=== PATIENT | female | born 1955 | race Caucasian/White ===

== ENCOUNTER 2016-07-06 23:27 | Emergency (ER) | payer BC ==
[~2016-07-06] VITALS: Ht 157.5 cm; Wt 67.7 kg
[2016-07-07] MEDS ORDERED: SODIUM CHLORIDE FLUSH 10ML SYR IVF ONE
[2016-07-07] MEDS ORDERED: DIPH,PERTUSS(ACELL),TET VAC/PF 0.5 ML IM-VACC ONE
[2016-07-07] MEDS ORDERED: ONDANSETRON 2MG/ML, 2ML IVPush ONE
[2016-07-07] MEDS ORDERED: SODIUM CHLORIDE 0.9% 1,000ML IVBOLUS ONE
[2016-07-07] MEDS ORDERED: BACITRACIN ZINC OINT 500U/GM, 0.9 GM ONE (01:24)
[2016-07-07] MEDS ORDERED: ACETAMINOPHEN 325 MG TABLET PO ONE (01:30)
[2016-07-07] MEDS ORDERED: ACETAMINOPHEN 325 MG TABLET ONE (01:31)
[2016-07-07 01:53] VITALS: BP 137/72
== END 2016-07-07 01:54 | disposition home or self-care (01) ==
LOC: ED 23:59
DX: S01.01XA Laceration without foreign body of scalp, initial encounter (principal); R11.2 Nausea with vomiting, unspecified; R19.7 Diarrhea, unspecified; W19.XXXA Unspecified fall, initial encounter; Y93.89 Activity, other specified; Y92.89 Other specified places as the place of occurrence of the external cause; Y99.8 Other external cause status
CPT/HCPCS: 12001; 70450; 72125